=== PATIENT | male | born 2000 | race American Indian/Alaskan Native ===

== ENCOUNTER 2021-09-05 14:40 | Emergency (ER) | payer MEDICAID ==
--- NOTE | 2021-09-05 17:27 | Emergency Department Report ---
ED ENT HPI - General Chief complaint: Sore Throat Stated complaint: THROAT PAIN Time Seen by Provider: 09/05/21 17:13 Source: patient Mode of arrival: Ambulatory Limitations: No Limitations - History of Present Illness Initial comments: 20-year-old -[place] male presents to the emergency room for 2-day history of a sore throat and a rash that he noticed just now while being in exam room. He denies any fever no chills no nausea no vomiting no cough. He is unvaccinated for Covid and flu. He denies any past medical history currently takes no meds on a daily basis and has no known drug allergies. MD complaint: sore throat Onset/Timin Location: throat Severity scale (0 -10): 4 Consistency: intermittent Worsens with: swallowing Context- Ear: other (Complains of right ear pain) Associated Symptoms: pain with swallowing, sore throat. denies: fever, cough, gum swelling, toothache, tinnitus, hearing loss, discharge from ear, rhinorrhea - Related Data Allergies Allergy/AdvReac Type Severity Reaction Status Date / Time No Known Allergies Allergy Verified 09/05/21 16:45 ED Dental HPI - General Chief complaint: Sore Throat Stated complaint: THROAT PAIN Time Seen by Provider: 09/05/21 17:13 Source: patient Mode of arrival: Ambulatory Limitations: No Limitations - Related Data Allergies Allergy/AdvReac Type Severity Reaction Status Date / Time No Known Allergies Allergy Verified 09/05/21 16:45 ED Review of Systems ROS: Stated complaint: THROAT PAIN Other details as noted in HPI Comment: All other systems reviewed and negative ED Past Medical Hx - Past Medical History Previous Medical History?: No ED Physical Exam - General Limitations: No Limitations General appearance: alert, in no apparent distress - Head Head exam: Present: atraumatic, normocephalic - Eye Eye exam: Present: normal appearance - ENT ENT exam: Present: normal orophraynx, mucous membranes moist, TM's normal bilaterally, normal external ear exam - Neck Neck exam: Present: lymphadenopathy. Absent: tenderness, full ROM - Respiratory Respiratory exam: Present: normal lung sounds bilaterally. Absent: accessory muscle use - Cardiovascular Cardiovascular Exam: Present: regular rate - GI/Abdominal GI/Abdominal exam: Present: soft. Absent: distended - Extremities Exam Extremities exam: Present: normal inspection, full ROM - Back Exam Back exam: Present: normal inspection - Neurological Exam Neurological exam: Present: alert, oriented X3, normal gait - Psychiatric Psychiatric exam: Present: normal affect, normal mood - Skin Skin exam: Present: rash, erythema ED Course Vital Signs 09/05/21 16:44 Temperature 99.1 F Pulse Rate 89 Respiratory 17 Rate Blood Pressure 131/69 O2 Sat by Pulse 97 Oximetry ED Medical Decision Making - Medical Decision Making 20-year-old -[place] male presents to the emergency room for 2-day history of a sore throat and a rash that he noticed just now while being in exam room. He denies any fever no chills no nausea no vomiting no cough. He is unvaccinated for Covid and flu. He denies any past medical history currently takes no meds on a daily basis and has no known drug allergies. Ears are clear, throat shows no erythematous nonedematous no exudate. Strep test is negative. Patient has a rash that is nonpruritic erythematous located on lower legs and thighs. Patient can try Zyrtec's of Benadryl and to follow-up with his primary care provider. Critical care attestation.: If time is entered above; I have spent that time in minutes in the direct care of this critically ill patient, excluding procedure time. ED Disposition Clinical Impression: Sore throat (viral), Rash, Posterior cervical lymphadenopathy Disposition: HOME / SELF CARE / HOMELESS Is pt being admited?: No Does the pt Need Aspirin: No Condition: Stable Instructions: Rash, Adult, [id number], Sore Throat, [id number], Viral Respiratory Infection, [id number] Additional Instructions: Strep test is negative. I recommend Zyrtec for your rash. Tylenol ibuprofen for sore throat. Follow-up with your primary care provider. Be sure to increase your fluid intake advance your diet as tolerated. Recommend Covid testing. Referrals: Andree, bell [Other] - 3-5 Days Forms: Work/School Release Form(ED) Time of Disposition: 17:28
[2021-09-05 17:59] VITALS: BP 120/64
== END 2021-09-05 17:51 | disposition home or self-care (01) ==
LOC: ED 14:40
DX: J02.8 Acute pharyngitis due to other specified organisms (principal); R21 Rash and other nonspecific skin eruption; R59.1 Generalized enlarged lymph nodes
CPT/HCPCS: 87116; 87430; 99283